=== PATIENT | female | born 1990 | race Caucasian/White ===

== ENCOUNTER 2022-12-25 09:18 | Inpatient (IN) ==
[2022-12-25] MEDS ORDERED: Buffered Lidocaine 1% SYRIN 1 ml INTRADERM ONE (10:09)
[2022-12-25] MEDS ORDERED: Lactated Ringers 1000 ml BAG 1,000 ML IV ONE (10:09)
[2022-12-25] MEDS ORDERED: Promethazine INJ(RESTRICTED) 25 MG/ML 1 ml VIAL IV PRN (10:09)
[2022-12-25] MEDS ORDERED: Lidocaine 1% VIAL 10 MG/ML 30 ML VIAL INJ PRN (10:09)
[2022-12-25] MEDS ORDERED: Lactated Ringers 1000 ml BAG 1,000 ML IV SCH (11:00)
[2022-12-25 13:17] LABS: Urine Benzodiazepine Screen None Detected (None Detect); Urine Opiates Screen None Detected (None Detect)
[2022-12-26] MEDS ORDERED: Witch Hazel PAD JAR TOPICAL PRN (04:14)
[2022-12-26] MEDS ORDERED: Dibucaine 1% OINT 28.35 GM TUBE PR PRN (04:14)
[2022-12-26] MEDS ORDERED: Glycerin ADULT 2.4 gm SUPP PR PRN (04:14)
[2022-12-26] MEDS ORDERED: Lactated Ringers 1000 ml BAG 1,000 ML IV SCH (05:00)
[2022-12-27 09:04] LABS: ABS Eosinophils 0.2 10^3/uL (0.0-0.5); ABS Lymphocytes 2.7 10^3/uL (1.0-4.8); ABS Monocytes 0.6 10^3/uL (0.0-0.9); ABS Neutrophils 9.8 10^3/uL (1.5-7.6); ABS Nucleated RBC 0.01 10^3/ul; Eosinophil % 1.5 %; Hematocrit 31.3 % (35-45); Hemoglobin 10.7 g/dL (11.5-14.3); Lymphocyte % 20.2 %; Mean Corpuscular Hgb Conc 34.3 g/dL (31-36); Mean Corpuscular Volume 87.4 fL (80-97); Mean Platelet Volume 8.5 fL (7.5-11.2); Platelet Count 223 10^3/uL (150-450); Red Blood Count 3.58 10^6/uL (3.63-4.92); Red Cell Distribution Width 13.5 % (12-17); White Blood Count 13.4 10^3/uL (3.8-11.8)
[2022-12-28 08:13] VITALS: BP 102/60
== END 2022-12-28 13:00 | disposition home or self-care (01) | DRG 807 ==
LOC: MCHOBOUT 09:18 → MCHOB 09:55
PROVIDERS: ADMIT Registered Nurse; ATTEND Registered Nurse